=== PATIENT | female | born 1970 | race Caucasian/White ===

== ENCOUNTER 2021-09-21 03:56 | Outpatient (CLI) | payer MEDICAID, OTHER, SELFPAY ==
[2021-09-21 09:28] LABS: Abs Immature Grans 0.06 10^3/uL (0.0-0.06); Absolute Basophil Count 0.06 10^3/uL (0.0-0.2); Absolute Eosinophil Count 0.28 10^3/uL (0.0-0.7); Absolute Monocyte Count 0.52 10^3/uL (0.1-0.8); Absolute Neutrophil Count 5.81 10^3/uL (1.2-6.7); Basophils % 0.7; Eosinophils % 3.5; HCT 29.6 % (36.0-46.0); HGB 8.6 g/dL (11.2-15.7); Immature Grans % 0.7; Lymphocytes % 16.2; MCH 24.2 pg (27.0-33.0); MCHC 29.1 % (32.0-36.0); MCV 83 fL (80-95); MPV 8.7 fL (8.0-11.0); Monocytes % 6.5; Neutrophils % 72.4; Platelet Count 261 10^3/uL (130-400); RBC 3.55 10^6/uL (3.93-5.22); RDW 15.3 % (11.7-14.6); RDW-SD 46.6 fL; WBC 8.03 10^3/uL (4.4-10.8)
[2021-09-21 09:53] LABS: ALT 21 U/L (14-59); AST 11 U/L (15-37); Albumin 3.1 g/dL (3.4-5.0); Alkaline Phosphatase 70 U/L (46-116); Anion Gap 6.7 mmol/L (3-11); BUN 17 mg/dL (7-18); Bilirubin, Total 0.2 mg/dL (0.2-1.0); CO2 30.3 mmol/L (21.0-32.0); CREATININE 0.7 mg/dL (0.55-1.02); Calcium 8.6 mg/dL (8.5-10.1); Chloride 104 mmol/L (98-107); FREE T4 0.91 ng/dL (0.76-1.46); Glucose 93 mg/dL (74-106); Magnesium 1.8 mg/dL (1.8-2.4); Potassium 3.8 mmol/L (3.5-5.1); Sodium 141 mmol/L (136-145); TSH 3.81 uIU/mL (0.36-3.74); Total Protein 6.8 g/dL (6.4-8.2)
== END 2021-09-21 03:57 | disposition home or self-care (01) ==
PROVIDERS: PCP Family Medicine; Visit Provider Internal Medicine Medical Oncology
DX: C34.91 Malignant neoplasm of unspecified part of right bronchus or lung (principal); C79.31 Secondary malignant neoplasm of brain; C79.51 Secondary malignant neoplasm of bone
CPT/HCPCS: 36415; 80053; 83735; 84439; 84443; 85025

== ENCOUNTER 2021-09-28 14:58 | Outpatient (CLI) | payer MEDICAID, SELFPAY ==
[2021-09-28 11:21] LABS: Abs Immature Grans 0.11 10^3/uL (0.0-0.06); Absolute Basophil Count 0.06 10^3/uL (0.0-0.2); Absolute Eosinophil Count 0.19 10^3/uL (0.0-0.7); Absolute Lymphocyte Count 1.33 10^3/uL (1.2-3.4); Absolute Monocyte Count 0.52 10^3/uL (0.1-0.8); Absolute Neutrophil Count 6.41 10^3/uL (1.2-6.7); Basophils % 0.7; Eosinophils % 2.2; HCT 29.5 % (36.0-46.0); HGB 8.7 g/dL (11.2-15.7); Immature Grans % 1.3; Lymphocytes % 15.4; MCH 24.1 pg (27.0-33.0); MCHC 29.5 % (32.0-36.0); MCV 82 fL (80-95); Neutrophils % 74.4; Platelet Count 373 10^3/uL (130-400); RBC 3.61 10^6/uL (3.93-5.22); RDW 15.6 % (11.7-14.6); RDW-SD 46.7 fL; WBC 8.62 10^3/uL (4.4-10.8)
[2021-09-28 11:59] LABS: ALT 23 U/L (14-59); AST 12 U/L (15-37); Albumin 3.2 g/dL (3.4-5.0); Alkaline Phosphatase 70 U/L (46-116); Anion Gap 6.4 mmol/L (3-11); BUN 21 mg/dL (7-18); Bilirubin, Total 0.2 mg/dL (0.2-1.0); CO2 30.6 mmol/L (21.0-32.0); CREATININE 0.7 mg/dL (0.55-1.02); Calcium 8.4 mg/dL (8.5-10.1); Chloride 104 mmol/L (98-107); Glucose 89 mg/dL (74-106); Potassium 4.1 mmol/L (3.5-5.1); Sodium 141 mmol/L (136-145); TSH 1.97 uIU/mL (0.36-3.74); Total Protein 7.1 g/dL (6.4-8.2)
== END 2021-09-28 14:59 | disposition home or self-care (01) ==
PROVIDERS: PCP Family Medicine; Visit Provider Internal Medicine Medical Oncology
DX: C34.91 Malignant neoplasm of unspecified part of right bronchus or lung (principal); C79.31 Secondary malignant neoplasm of brain; C79.51 Secondary malignant neoplasm of bone
CPT/HCPCS: 36415; 80053; 83735; 84439; 84443; 85025

== ENCOUNTER 2021-10-12 04:10 | Outpatient (CLI) | payer MEDICAID, SELFPAY ==
[2021-10-12 13:31] LABS: Abs Immature Grans 0.01 10^3/uL (0.0-0.06); Absolute Basophil Count 0.01 10^3/uL (0.0-0.2); Absolute Eosinophil Count 0.06 10^3/uL (0.0-0.7); Absolute Lymphocyte Count 0.65 10^3/uL (1.2-3.4); Absolute Monocyte Count 0.21 10^3/uL (0.1-0.8); Absolute Neutrophil Count 2.72 10^3/uL (1.2-6.7); Basophils % 0.3; Eosinophils % 1.6; HCT 28.2 % (36.0-46.0); HGB 8.4 g/dL (11.2-15.7); Immature Grans % 0.3; Lymphocytes % 17.8; MCH 23.8 pg (27.0-33.0); MCHC 29.8 % (32.0-36.0); MCV 80 fL (80-95); MPV 9.4 fL (8.0-11.0); Monocytes % 5.7; Neutrophils % 74.3; Platelet Count 147 10^3/uL (130-400); RBC 3.53 10^6/uL (3.93-5.22); RDW 16.2 % (11.7-14.6); RDW-SD 45.7 fL; WBC 3.66 10^3/uL (4.4-10.8)
[2021-10-12 14:09] LABS: ALT 25 U/L (14-59); AST 12 U/L (15-37); Albumin 3.2 g/dL (3.4-5.0); Alkaline Phosphatase 62 U/L (46-116); Anion Gap 6.4 mmol/L (3-11); BUN 14 mg/dL (7-18); Bilirubin, Total 0.2 mg/dL (0.2-1.0); CO2 30.6 mmol/L (21.0-32.0); CREATININE 0.6 mg/dL (0.55-1.02); Calcium 8.5 mg/dL (8.5-10.1); Chloride 106 mmol/L (98-107); Estimated GFR 109.28 (mL/min/1.73m2); FREE T4 0.94 ng/dL (0.76-1.46); Glucose 103 mg/dL (74-106); Magnesium 1.9 mg/dL (1.8-2.4); Potassium 3.9 mmol/L (3.5-5.1); Sodium 143 mmol/L (136-145); TSH 1.32 uIU/mL (0.36-3.74)
== END 2021-10-12 04:11 | disposition home or self-care (01) ==
LOC: LBO 04:11
PROVIDERS: PCP Family Medicine; Visit Provider Internal Medicine Medical Oncology
DX: C34.91 Malignant neoplasm of unspecified part of right bronchus or lung (principal); C79.31 Secondary malignant neoplasm of brain; C79.51 Secondary malignant neoplasm of bone
CPT/HCPCS: 36415; 80053; 83735; 84439; 84443; 85025

== ENCOUNTER 2021-10-20 02:21 | Outpatient (CLI) | payer MEDICAID, SELFPAY ==
[2021-10-20 08:15] LABS: Abs Immature Grans 0.06 10^3/uL (0.0-0.06); Absolute Basophil Count 0.07 10^3/uL (0.0-0.2); Absolute Eosinophil Count 0.18 10^3/uL (0.0-0.7); Absolute Lymphocyte Count 2.01 10^3/uL (1.2-3.4); Absolute Monocyte Count 0.59 10^3/uL (0.1-0.8); Absolute Neutrophil Count 2.91 10^3/uL (1.2-6.7); Basophils % 1.2; Eosinophils % 3.1; HCT 29.8 % (36.0-46.0); HGB 8.8 g/dL (11.2-15.7); Lymphocytes % 34.5; MCH 23.5 pg (27.0-33.0); MCHC 29.5 % (32.0-36.0); MCV 80 fL (80-95); MPV 8.5 fL (8.0-11.0); Monocytes % 10.1; Neutrophils % 50.1; Platelet Count 478 10^3/uL (130-400); RBC 3.75 10^6/uL (3.93-5.22); RDW 16.8 % (11.7-14.6); WBC 5.82 10^3/uL (4.4-10.8)
[2021-10-20 08:39] LABS: ALT 19 U/L (14-59); AST 12 U/L (15-37); Albumin 3.3 g/dL (3.4-5.0); Alkaline Phosphatase 68 U/L (46-116); BUN 16 mg/dL (7-18); Bilirubin, Total 0.3 mg/dL (0.2-1.0); CREATININE 0.9 mg/dL (0.55-1.02); Chloride 105 mmol/L (98-107); Estimated GFR 77.88 (mL/min/1.73m2); FREE T4 0.96 ng/dL (0.76-1.46); Glucose 89 mg/dL (74-106); Magnesium 1.9 mg/dL (1.8-2.4); Potassium 3.7 mmol/L (3.5-5.1); Sodium 142 mmol/L (136-145); TSH 4.14 uIU/mL (0.36-3.74); Total Protein 7.2 g/dL (6.4-8.2)
== END 2021-10-20 02:22 | disposition home or self-care (01) ==
LOC: LBO 02:22
PROVIDERS: PCP Family Medicine; Visit Provider Internal Medicine Medical Oncology
DX: C34.91 Malignant neoplasm of unspecified part of right bronchus or lung (principal); C79.31 Secondary malignant neoplasm of brain; C79.51 Secondary malignant neoplasm of bone
CPT/HCPCS: 36415; 80053; 83735; 84439; 84443; 85025

== ENCOUNTER 2021-11-09 02:45 | Outpatient (CLI) | payer MEDICAID, SELFPAY ==
[2021-11-09 09:24] LABS: Absolute Basophil Count 0.04 10^3/uL (0.0-0.2); Absolute Eosinophil Count 0.27 10^3/uL (0.0-0.7); Absolute Lymphocyte Count 1.82 10^3/uL (1.2-3.4); Absolute Monocyte Count 0.62 10^3/uL (0.1-0.8); Absolute Neutrophil Count 3.42 10^3/uL (1.2-6.7); Basophils % 0.6; Eosinophils % 4.3; HCT 31.1 % (36.0-46.0); Immature Grans % 1.6; MCH 23.6 pg (27.0-33.0); MCHC 28.9 % (32.0-36.0); MCV 82 fL (80-95); MPV 8.7 fL (8.0-11.0); Monocytes % 9.9; Neutrophils % 54.6; Platelet Count 480 10^3/uL (130-400); RBC 3.81 10^6/uL (3.93-5.22); RDW 18.9 % (11.7-14.6); RDW-SD 54.4 fL; WBC 6.27 10^3/uL (4.4-10.8)
[2021-11-09 09:51] LABS: ALT 34 U/L (14-59); AST 16 U/L (15-37); Albumin 3.4 g/dL (3.4-5.0); Alkaline Phosphatase 69 U/L (46-116); Anion Gap 7.6 mmol/L (3-11); BUN 13 mg/dL (7-18); Bilirubin, Total 0.2 mg/dL (0.2-1.0); CO2 30.4 mmol/L (21.0-32.0); Chloride 103 mmol/L (98-107); Estimated GFR 68.63 (mL/min/1.73m2); FREE T4 0.85 ng/dL (0.76-1.46); Glucose 95 mg/dL (74-106); Magnesium 1.7 mg/dL (1.8-2.4); Potassium 3.3 mmol/L (3.5-5.1); Sodium 141 mmol/L (136-145); TSH 2.83 uIU/mL (0.36-3.74); Total Protein 7.2 g/dL (6.4-8.2)
== END 2021-11-09 02:46 | disposition home or self-care (01) ==
LOC: LBO 02:45
PROVIDERS: PCP Family Medicine; Visit Provider Internal Medicine Medical Oncology
DX: C79.31 Secondary malignant neoplasm of brain (principal); C79.51 Secondary malignant neoplasm of bone; C34.91 Malignant neoplasm of unspecified part of right bronchus or lung
CPT/HCPCS: 36415; 80053; 83735; 84439; 84443; 85025

== ENCOUNTER 2021-11-30 03:34 | Outpatient (CLI) | payer MEDICAID, SELFPAY ==
[2021-11-30 09:45] LABS: Abs Immature Grans 0.08 10^3/uL (0.0-0.06); Absolute Basophil Count 0.05 10^3/uL (0.0-0.2); Absolute Eosinophil Count 0.22 10^3/uL (0.0-0.7); Absolute Lymphocyte Count 1.24 10^3/uL (1.2-3.4); Absolute Monocyte Count 0.56 10^3/uL (0.1-0.8); Absolute Neutrophil Count 2.48 10^3/uL (1.2-6.7); Basophils % 1.1; Eosinophils % 4.8; HCT 30.1 % (36.0-46.0); HGB 8.9 g/dL (11.2-15.7); Immature Grans % 1.7; Lymphocytes % 26.8; MCHC 29.6 % (32.0-36.0); MCV 81 fL (80-95); MPV 8.8 fL (8.0-11.0); Monocytes % 12.1; Neutrophils % 53.5; Platelet Count 353 10^3/uL (130-400); RBC 3.71 10^6/uL (3.93-5.22); RDW 21.2 % (11.7-14.6); RDW-SD 61.7 fL; WBC 4.63 10^3/uL (4.4-10.8)
[2021-11-30 10:10] LABS: Anisocytosis 1+; Polychromasia Present
[2021-11-30 10:11] LABS: ALT 19 U/L (14-59); AST 14 U/L (15-37); Albumin 3.6 g/dL (3.4-5.0); Alkaline Phosphatase 57 U/L (46-116); BUN 13 mg/dL (7-18); Bilirubin, Total 0.2 mg/dL (0.2-1.0); CREATININE 0.9 mg/dL (0.55-1.02); Calcium 8.8 mg/dL (8.5-10.1); Chloride 105 mmol/L (98-107); Estimated GFR 77.88 (mL/min/1.73m2); FREE T4 0.91 ng/dL (0.76-1.46); Glucose 86 mg/dL (74-106); Magnesium 1.9 mg/dL (1.8-2.4); Potassium 3.6 mmol/L (3.5-5.1); Sodium 144 mmol/L (136-145); Total Protein 7.2 g/dL (6.4-8.2)
== END 2021-11-30 03:35 | disposition home or self-care (01) ==
LOC: LBO 03:34
PROVIDERS: PCP Family Medicine; Visit Provider Internal Medicine Medical Oncology
DX: C34.91 Malignant neoplasm of unspecified part of right bronchus or lung (principal); C79.31 Secondary malignant neoplasm of brain; C79.51 Secondary malignant neoplasm of bone; Z79.899 Other long term (current) drug therapy
CPT/HCPCS: 36415; 80053; 83735; 84439; 84443; 85025

== ENCOUNTER 2021-12-21 02:40 | Outpatient (CLI) | payer MEDICAID, SELFPAY ==
[2021-12-21 09:54] LABS: Abs Immature Grans 0.04 10^3/uL (0.0-0.06); Absolute Basophil Count 0.04 10^3/uL (0.0-0.2); Absolute Eosinophil Count 0.12 10^3/uL (0.0-0.7); Absolute Lymphocyte Count 1.02 10^3/uL (1.2-3.4); Absolute Monocyte Count 0.57 10^3/uL (0.1-0.8); Absolute Neutrophil Count 2.91 10^3/uL (1.2-6.7); Basophils % 0.9; Eosinophils % 2.6; HGB 8.5 g/dL (11.2-15.7); Immature Grans % 0.9; Lymphocytes % 21.7; MCH 24.9 pg (27.0-33.0); MCHC 29.3 % (32.0-36.0); MCV 85 fL (80-95); MPV 8.9 fL (8.0-11.0); Monocytes % 12.1; Neutrophils % 61.8; Platelet Count 406 10^3/uL (130-400); RBC 3.42 10^6/uL (3.93-5.22); RDW 22.6 % (11.7-14.6); RDW-SD 69.9 fL
[2021-12-21 10:32] LABS: ALT 19 U/L (14-59); AST 17 U/L (15-37); Albumin 3.3 g/dL (3.4-5.0); Alkaline Phosphatase 66 U/L (46-116); Anion Gap 7.4 mmol/L (3-11); BUN 13 mg/dL (7-18); Bilirubin, Total 0.3 mg/dL (0.2-1.0); CO2 29.6 mmol/L (21.0-32.0); CREATININE 0.9 mg/dL (0.55-1.02); Calcium 9.1 mg/dL (8.5-10.1); Chloride 108 mmol/L (98-107); Estimated GFR 77.88 (mL/min/1.73m2); FREE T4 1.46 ng/dL (0.76-1.46); Glucose 92 mg/dL (74-106); Magnesium 1.8 mg/dL (1.8-2.4); Potassium 3.8 mmol/L (3.5-5.1); Sodium 145 mmol/L (136-145); TSH 0.13 uIU/mL (0.36-3.74)
== END 2021-12-21 02:41 | disposition home or self-care (01) ==
LOC: LBO 02:45
PROVIDERS: PCP Family Medicine; Visit Provider Internal Medicine Medical Oncology
DX: C34.91 Malignant neoplasm of unspecified part of right bronchus or lung (principal); C79.31 Secondary malignant neoplasm of brain; C79.51 Secondary malignant neoplasm of bone
CPT/HCPCS: 36415; 80053; 83735; 84439; 84443; 85025